=== PATIENT | male | born 1990 | race Caucasian/White ===

== ENCOUNTER 2021-03-21 00:52 | Inpatient (IN) | payer MEDICARE, MEDICAID ==
--- NOTE | 2021-03-21 01:26 | ED ---
Psych HPI - General Stated Complaint: Mental Health Time Seen by Provider: 03/21/21 00:56 Source: patient, police, EMS Mode of arrival: EMS - History of Present Illness Initial Comments: This patient is a 30-year-old man who presents with complaint that there is a demon and that is telling him to hang himself. The demon is also telling him not to talk. He will only communicate through writing. MD Complaint: suicidal ideation, other -: days(s) Associated Psychiatric Symptoms: depression, racing thoughts, auditory hallucinations Quality: constant Improves With: none Worsens With: none - Related Data Home Medications Medication Instructions Recorded Confirmed No Known Home Medications 03/21/21 03/21/21 Allergies Allergy/AdvReac Type Severity Reaction Status Date / Time lamotrigine [From Lamictal] Allergy Anaphylaxis Verified 03/21/21 01:05 Review of Systems ROS Statement: Those systems with pertinent positive or pertinent negative responses have been documented in the HPI. ROS Other: All systems not noted in ROS Statement are negative. Constitutional: Denies: fever, chills Respiratory: Denies: cough, dyspnea Cardiovascular: Denies: chest pain, palpitations Gastrointestinal: Denies: abdominal pain, vomiting Neurological: Denies: headache Psychiatric: Reports: auditory hallucinations, suicidal thoughts. Denies: visual hallucinations, homicidal thoughts Past Medical History Past Medical History: No Reported History History of Any Multi-Drug Resistant Organisms: None Reported Past Surgical History: No Surgical Hx Reported Past Psychological History: Anxiety, Depression Smoking Status: Current every day smoker Past Alcohol Use History: None Reported Past Drug Use History: None Reported General Exam Limitations: language barrier General appearance: alert, in no apparent distress Head exam: Present: atraumatic, normocephalic Eye exam: Present: normal appearance Respiratory exam: Present: normal lung sounds bilaterally. Absent: respiratory distress, wheezes, rales, rhonchi, stridor Cardiovascular Exam: Present: regular rate, normal rhythm, normal heart sounds. Absent: systolic murmur, diastolic murmur, rubs, gallop GI/Abdominal exam: Present: soft. Absent: distended, tenderness, guarding, rebound, rigid, mass Extremities exam: Present: normal inspection, normal capillary refill. Absent: pedal edema, calf tenderness Back exam: Present: normal inspection. Absent: CVA tenderness (R), CVA tenderne ss (L) Neurological exam: Present: alert Psychiatric exam: Present: suicidal ideation. Absent: depressed, agitated, anxious, manic, homicidal ideation Skin exam: Present: warm, dry, intact, normal color. Absent: rash Course Vital Signs 03/21/21 03/21/21 03/21/21 00:55 03:00 05:40 Temperature 98.3 F 97.9 F Pulse Rate 69 82 Pulse Rate [ 86 Right Sitting Pulse Oximetery ] Respiratory 18 16 20 Rate Blood Pressure 138/83 132/78 Blood Pressure 135/79 [Right Arm Sitting] O2 Sat by Pulse 99 98 Oximetry Medical Decision Making - Lab Data Result diagrams: 03/22/21 08:08 Lab Results 03/21/21 03/21/21 03/21/21 Range/Units 02:50 02:50 02:50 Urine Color Yellow Urine Appearance Clear (Clear) Urine pH 6.0 (5.0-8.0) Ur Specific [place] 1.010 (1.001-1.035) Urine Protein Negative (Negative) Urine Glucose (UA) Negative (Negative) Urine Ketones Negative (Negative) Urine Blood Negative (Negative) Urine Nitrite Negative (Negative) Urine Bilirubin Negative (Negative) Urine Urobilinogen <2.0 (<2.0) mg/dL Ur Leukocyte Esterase Negative (Negative) Urine Opiates Screen Not Detected (NotDetected) Ur Oxycodone Screen Not Detected (NotDetected) Urine Methadone Screen Not Detected (NotDetected) Ur Propoxyphene Screen Not Detected (NotDetected) Ur Barbiturates Screen Not Detected (NotDetected) U Tricyclic Antidepress Not Detected (NotDetected) Ur Phencyclidine Scrn Not Detected (NotDetected) Ur Amphetamines Screen Not Detected (NotDetected) U Methamphetamines Scrn Not Detected (NotDetected) U Benzodiazepines Scrn Not Detected (NotDetected) Urine Cocaine Screen Not Detected (NotDetected) U Marijuana (THC) Screen Not Detected (NotDetected) Coronavirus (PCR) Not Detected (Not Detectd) Disposition Clinical Impression: Acute psychosis, Mood disorder Disposition: TRANSFER TO PSYCH HOSP/UNIT Condition: Fair
[2021-03-21 03:21] LABS: Amphetamine Screen,Urine Not Detected (NotDetected); Barbiturate Screen,Urine Not Detected (NotDetected); Benzodiazepines Screen,Urine Not Detected (NotDetected); Cocaine Screen,Urine Not Detected (NotDetected); Methadone Screen, Urine Not Detected (NotDetected); Opiate Screen,Urine Not Detected (NotDetected); Oxycodone Screen, Urine Not Detected (NotDetected); Phencyclidine Screen,Urine Not Detected (NotDetected); Tricyclic Antidepressant,Urine Not Detected (NotDetected); Urn Cannabinoid Scrn Not Detected (NotDetected)
[2021-03-21] MEDS ORDERED: MAG HYDROX/AL HYDROX/SIMETH 30 ML CUP PO PRN (05:16)
[2021-03-21] MEDS ORDERED: ACETAMINOPHEN TAB 325 MG TAB PO PRN (05:16)
[2021-03-21] MEDS ORDERED: MAGNESIUM HYDROXIDE 2,400 MG/10 ML CUP PO PRN (05:16)
[2021-03-21] MEDS ORDERED: HALOPERIDOL LACTATE 5 MG/ML 1 ML VIAL IM PRN (05:16)
[2021-03-21] MEDS ORDERED: LORazepam 2 MG/ML INJ IM PRN (05:21)
[2021-03-21] MEDS ORDERED: LORazepam 1 MG TAB PO PRN (05:21)
[2021-03-21 05:28] LABS: Appearance,Urine Clear (Clear); Bilirubin,Urine Negative (Negative); Blood,Urine Negative (Negative); Color,Urine Yellow; Glucose,Urine (UA) Negative (Negative); Ketones,Urine Negative (Negative); Leukocyte Esterase,Urine Negative (Negative); Nitrite,Urine Negative (Negative); Protein,Urine Negative (Negative); Urobilinogen,Urine <2.0 mg/dL (<2.0)
[2021-03-21] MEDS: NICOTINE 14MG/24HR PATCH TRANSDERM SCH (08:55)
[2021-03-21] MEDS: OLANZapine 7.5 MG TAB PO SCH (13:41)
--- NOTE | 2021-03-21 14:04 | HP ---
HISTORY AND PHYSICAL IDENTIFYING DATA: The patient is a 30-year-old male. There is no information available about his current living situation or circumstances. He came to the ED for evaluation. CHIEF COMPLAINT: The patient was indicating that he was hearing demons telling him to hang himself. HISTORY OF PRESENTING ILLNESS: There are no past records available. 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 When he presented to the ED, he essentially was mute and for the most part has continued to be mute since then. He made an indication that he has autism, although there is no further information than that. According to the ED note, the patient had complaint that "there is a demon and that is telling him to hang himself. The demon is also telling him not to talk. He will only communicate through writing." Beyond that information, the patient has provided no further information. He made some suggestion when I talked to him that he may have had a prior psychiatric hospitalization, though he seemed to gesture that it was a considerable amount of time ago. When I asked him if it was recent, he shook his head no. He did not make an effort to write anything. It is noteworthy that since he has been on the unit, there have been a few times where he has talked to staff in a limited way, though also has tended to be totally mute where he will not say anything at all even with a significant amount of encouragement. He indicated that he has not been on any psychotropic medications currently. When I asked them if he has been on Zyprexa in the past, he shook his head yes when I asked him if he had trouble with it, he shook his head yes. When I asked him what problem he had, he made some gesture with his hands that I was not able to interpret in any way. I asked the patient if he would take Zyprexa as a trial and he shook his head yes. Beyond that, the patient did not respond to any other questions during the interview. He is admitted for further evaluation. SUBSTANCE USE HISTORY: No information available. PAST MEDICAL HISTORY: The patient provided no information. It is noted that vital signs on admission have been in the normal range. MENTAL STATUS EXAM: The patient was in the day room. When I asked him to come down to the office, he got up and walked with me to the office. He tended to look down and moved in a slow manner. He sat and seemed to have his eye gaze forward and down. He did not give any eye contact. He did respond to a few questions where he would shake his head yes or no. There were a few different times he made some gestures with his hands. Though I was not able to interpret the meaning of his gestures. He had a disgruntled look on his face. He had a quiet, withdrawn manner. He appeared significantly distressed. As noted above, he was totally mute throughout the interview process. PHYSICAL EXAMINATION: As per medical consultation. ASSESSMENT: This 30-year-old male is diagnosed with psychosis. There is a possibility that he has an additional diagnosis of autism, though there is no adequate information to verify that. There is no information available in regards to his past psychiatric history or precipitating factors to his current situation. The patient himself did indicate that he has had past psychiatric intervention. DIAGNOSES: 1. Psychosis. 2. Rule out autism. RECOMMENDATIONS: Patient will be admitted for comprehensive medical psychiatric and psychosocial evaluation. We will make efforts to engage the patient in individual and group therapeutic activities. I will start the patient on Zyprexa. He will get a 15 mg dose initially. I would look to continue him on 10 mg 3 times a day. I will evaluate him a little later after he has received his initial dose to see if he shows any early response to the medication. We will continue to monitor and make efforts to engage the patient in any conversation that we can have that hopefully might allow him to adjust to the unit and be a little more open in communicating issues and concerns. We will focus on stabilization and discharge planning. MMPENELOPEL / PHONGN: [id number] /
--- NOTE | 2021-03-22 01:05 | P.PN ---
Progress Note - Text Progress Note Date: 03/22/21 The patient refused to be seen or examined. Will attempt again tomorrow.
[2021-03-22 08:35] LABS: Basophils # (A) 0.1 k/uL (0-0.2); Basophils % (A) 1 %; Eosinophils # (A) 0.2 k/uL (0-0.7); Eosinophils % (A) 4 %; HCT 49.6 % (39.0-53.0); HGB 16.7 gm/dL (13.0-17.5); Lymphocytes % (A) 34 %; MCH 31.5 pg (25.0-35.0); MCHC 33.7 g/dL (31.0-37.0); MCV 93.4 fL (80.0-100.0); Mean Platelet Volume 7.5; Monocytes # (A) 0.5 k/uL (0-1.0); Monocytes % (A) 8 %; Neutrophils % (A) 51 %; Platelet Count 213 k/uL (150-450); RBC 5.31 m/uL (4.30-5.90); RDW 12.6 % (11.5-15.5); WBC 5.9 k/uL (3.8-10.6)
[2021-03-22] MEDS: OLANZapine 7.5 MG TAB PO SCH ×2 (08:42→08:45)
[2021-03-22] MEDS: NICOTINE 14MG/24HR PATCH TRANSDERM SCH ×2 (08:42→08:45)
[2021-03-22 08:54] LABS: ALT 22 U/L (4-49); AST 26 U/L (17-59); African American GFR (CKD) >90 (>60 ml/min/1.73 sqM); Alkaline Phosphatase 67 U/L (38-126); Anion Gap 5 mmol/L; Bilirubin,Unconjugated 0.7 mg/dL (0.0-1.1); Blood Urea Nitrogen 13 mg/dL (9-20); Calcium 9.5 mg/dL (8.4-10.2); Carbon Dioxide 29 mmol/L (22-30); Chloride 108 mmol/L (98-107); Glucose 86 mg/dL (74-99); Non-African American GFR(CKD) >90 (>60 ml/min/1.73 sqM); Potassium 4.3 mmol/L (3.5-5.1); Sodium 142 mmol/L (137-145); Total Bilirubin 0.7 mg/dL (0.2-1.3); Total Protein 6.7 g/dL (6.3-8.2)
[2021-03-22] MEDS: OLANZapine 10 MG TAB PO SCH ×2 (12:42→20:51)
[2021-03-22 16:47] LABS: Hemoglobin A1C 4.8 % (4.0-6.0)
[2021-03-22 18:54] LABS: Chol/HDL Ratio 6.13; Cholesterol 196 mg/dL (0-200)
--- NOTE | 2021-03-22 19:08 | PN ---
PROGRESS NOTE DATE OF SERVICE: 03/22/2021. CHIEF COMPLAINT: The patient was indicating that he was hearing demons telling him to hang himself. INTERVAL HISTORY: The patient continues to be quite withdrawn, most of the day yesterday he was in his room lying in bed. He would not respond to staff when they would come to his room and trying to talk to him. He had said a few things to a few staff members, though most of the time yesterday he was mute, though would nod or give some hand gestures for responses. He slept through the night. Today he has continued to remain in his room. He did accept medication yesterday, though he did not get the medicine this morning, mainly because he just remained in bed. He will get up and move about his room. He does not come out in the halls or attend any groups. I saw him in his room and he was up. I encouraged him to come down to the office, though he declined. He did say he would take his medications and accepted the Zyprexa 10 mg at 12:40 pm to this afternoon. He will be due for nighttime dose as well. He shook his head no when I asked him if he had any problems or concerns regarding his medications. MENTAL STATUS EXAM: Patient was in his room, standing up. I tried to encourage him to come down to the office, though he kept shaking his head no. He gave me a little eye contact. It is noted that he did say a few words out loud, though it was not clear exactly what he was saying. Beyond that he had just would shake his head and gesture. He was a little restless as he stood. When I asked him if he had any trouble with the medication yesterday, he shook his head no. I encouraged him to take the medicine and asked him if he knew where to go to get medicine. He shook his head yes. He did not respond in any other way. He had a somewhat distressed or forelorned look on its face. ASSESSMENT: I will continue the current diagnosis and treatment plan. I will continue the patient on Zyprexa 10 mg twice a day for psychosis. We will continue to make efforts to engage with the patient and encouraged him towards continue with medications and hopefully to make an effort to get out in the milieu. We will focus on stabilization and discharge planning. MMODL / IJN: [id number] /
[2021-03-23] MEDS: OLANZapine 10 MG TAB PO SCH ×2 (09:53→10:06)
[2021-03-23] MEDS: NICOTINE 14MG/24HR PATCH TRANSDERM SCH (09:53)
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
[2021-03-23] MEDS: OLANZapine 5 MG TAB PO SCH (21:14)
[2021-03-24] MEDS: NICOTINE 14MG/24HR PATCH TRANSDERM SCH (08:20)
[2021-03-24] MEDS: OLANZapine 5 MG TAB PO SCH ×2 (08:20→20:13)
--- NOTE | 2021-03-24 10:11 | P.PN ---
Progress Note - Text Progress Note Date: 03/24/21 Interval History: Patient was seen resting in bed and refused to get out of bed and preferred to speak with health science writer in his room. Patient reports he is doing "fine." He is currently not reporting any suicidal or homicidal ideation, intention, and/or plan. He reports no auditory or visual hallucinations. He reports that he drank a lot of water last night and had difficulty sleeping last night because of frequent urination. He has been adherent with his medication and is not reporting any side effect. He remains superficial in his responses and refuses to elaborate beyond "yes and no." He remains isolative to himself in his room most of the day. He denies any issues with his appetite. He refuses to elaborate on the note he wrote regarding his plan to kill himself. Mental Status Exam: General Appearance: Patient appears to be stated age is alert, difficult to direct and uncooperative. Buzz cut hair. Behavior: The patient is calmly lying in bed. No eye contact. Speech: Patient's speech is monotone, nonspontaneous, normal volume and rate. Mood/Affect: Mood is "fine." Affect is constricted and somewhat irritable. Suicidality/Homicidality: Patient denies any suicidal or homicidal ideation, intention, and/or plan. Perceptions: Patient denies any auditory or visual hallucinations. Though content/process: No delusional thought content is endorsed. Memory and concentration: AOX3, grossly intact for the purposes of this session Judgment and insight: Poor Assessment: Psychosis, unspecified Plan: -Patient continues to meet criteria for inpatient psychiatric admission for symptom stabilization and safety. The patient has been petitioned and certified. -Medications: Continue Zyprexa 5 mg by mouth twice a day for psychosis/mood stabilization -When necessary Ativan and Haldol agitation/aggression. -SW on board for discharge planning. Encouraged the patient to participate in milieu.
[2021-03-24] MEDS: haloperidoL 5 MG TAB PO PRN (21:44)
[2021-03-25] MEDS: NICOTINE 14MG/24HR PATCH TRANSDERM SCH (08:26)
[2021-03-25] MEDS: OLANZapine 5 MG TAB PO SCH ×3 (08:26→21:02)
--- NOTE | 2021-03-25 11:48 | P.PN ---
Progress Note - Text Progress Note Date: 03/25/21 Interval History: Patient was agreeable to speak with music writer in his room. The patient was more engaged in interview and got out of bed and remained seated upright. The patient reports that he is feeling like sharing more provided today. He reports that he feels he has misconceived notions about all psychiatrist and was grateful to have a psychiatrist that he is able to talk to and actually was into his problems. He is currently not reporting any suicidal or homicidal ideation, intention, and/or plan. When confronted about his 2 ideas of suicide, the patient stated that his plans while on the unit was to either refrain from drinking any water or messing around with a socket to electrocute himself. The patient is not reporting any issues with sleep or appetite. He has been adherent to his medications is not reporting any significant side effects. He is not reporting any auditory or visual hallucinations. He is denying any paranoia or delusions. Mental Status Exam: General Appearance: Patient appears to be stated age, with fair hygiene and grooming, and is alert and cooperative. Buzz cut hair. Behavior: The patient is calmly seated upright in his bed. Psychomotor activity is normal. Eye contact is appropriate. Speech: Patient's speech is spontaneous, with normal rate, tone, and volume. Mood/Affect: Mood is "good." Affect is euthymic with appropriate range. Suicidality/Homicidality: Patient denies any suicidal or homicidal ideation, intention, and/or plan. Perceptions: Patient denies any auditory or visual hallucinations. Though content/process: No delusional thought content is endorsed. Memory and concentration: AOX3, grossly intact for the purposes of this session Judgment and insight: Mildly improving Vital Signs Temp 97.5 F L 03/25/21 06:12 Pulse 76 03/25/21 06:12 Resp 20 03/21/21 05:40 BP 150/79 03/25/21 06:12 Pulse Ox 98 03/21/21 03:00 Assessment: Psychosis, unspecified Bipolar disorder, unspecified Plan: -Patient continues to meet criteria for inpatient psychiatric admission for symptom stabilization and safety. The patient has signed voluntarily for admission. -Medications: Increase Zyprexa to 5 mg 3 times a day for psychosis/mood stabilization -Titrate medications if necessary over the weekend. Anticipate discharge on Sunday or Sunday. -When necessary Ativan and Haldol agitation/aggression. -SW on board for discharge planning. Encouraged the patient to participate in milieu.
[2021-03-25] MEDS: haloperidoL 5 MG TAB PO PRN (21:03)
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
[2021-03-26] MEDS: NICOTINE 14MG/24HR PATCH TRANSDERM SCH (07:53)
[2021-03-26] MEDS: OLANZapine 5 MG TAB PO SCH ×3 (07:54→20:41)
[2021-03-26] MEDS: LORazepam 1 MG TAB PO PRN (22:04)
[2021-03-27] MEDS: NICOTINE 14MG/24HR PATCH TRANSDERM SCH (07:55)
[2021-03-27] MEDS: OLANZapine 5 MG TAB PO SCH ×3 (07:55→20:33)
--- NOTE | 2021-03-27 10:57 | P.PN ---
Progress Note - Text Progress Note Date: 03/26/21 Clinical Problems: Unspecified psychotic disorder, rule out bipolar disorder current episode depressed with psychotic features, rule out schizoaffective disorder, rule out schizophrenia, poor compliance with mental health treatment Interim history: I reviewed the medical record and attempted to interview the patient. He is 30-year-old single male admitted to the psychiatric unit voluntarily. He presented with what appeared to be elective mutism, suicidal ideation and paranoid delusional beliefs. He told the physician in the ED that "there is a demon that is telling him to hang himself." He has been oppositional throughout this brief hospitalization however he is speaking with staff. He would not get out of bed for the interview. His only concern was asking for assistance in lowering the temperature of his room heater. He denied problems or concerns and did not voice suicidal thoughts, intent or plan. He is attending occasional therapeutic groups and activities. He slept 5 hours last night. He's been compliant with Zyprexa 5 mg 3 times a day; he denied side effects. Mental status exam: He presented as minimally cooperative young male who is laying in bed. He made eye contact and appeared to attend to the interview. He showed no abnormality of psychomotor activity. He is mildly sedated. Speech was not spontaneous but was clear, coherent and organized. His affect was blunted. He did not express suicidal thoughts or ideations. He did not expressed depressive cognitions, obsessions, phobias, ideas reference or paranoid ideation. His thinking was concrete. Associations were coherent and goal directed. He denied hallucinations did not appear to be responding to internal stimuli. Assessment: He remains oppositional about the mutism has resolved and he has not recently express delusional thoughts or suicidal ideation. Plan: Continue with inpatient treatment. Continue with safety precautions. Continue Zyprexa 5 mg 3 times a day, Haldol 5 mg by mouth/IM every 6 hours when necessary for agitation acute psychosis as well as Ativan 1 mg by mouth or IM every 6 when necessary for anxiety or agitation. Encourage participation in therapeutic groups and activities. Evaluate clinical status response treatment daily basis.
--- NOTE | 2021-03-27 15:02 | P.PN ---
Progress Note - Text Progress Note Date: 03/27/21 Clinical Problems: Unspecified psychotic disorder, rule out bipolar disorder current episode depressed with psychotic features, rule out schizoaffective disorder, rule out schizophrenia, poor compliance with mental health treatment Interim history: I reviewed the medical record and attempted to interview the patient. He was pleasant on approach and spoke voluminously about his concerns. His speech was rapid and pressured. He assured me that he is not a danger to self or others. He referred to himself as a "high functioning autistic" who is learning how to "read other people." He talked about negative experiences with others including his parents and difficulty he's had in his social relationships. He plans to return to the [facility] after discharge. He denied side effects to his current medications. He is attending occasional therapeutic groups and activities. He slept 6 hours last night. He's been compliant with Zyprexa 5 mg 3 times a day; he denied side effects. Mental status exam: He presented as somewhat disheveled appearing young Cauc[place] criselda male who is pleasant on approach. He made eye contact and appeared to attend to the interview. He showed no abnormality of psychomotor activity. He was alert and fully oriented. Speech was spontaneous and pressured. His affect was blunted. He deniedsuicidal thoughts or ideations. He did not expressed depressive cognitions, obsessions, phobias, ideas reference or paranoid ideation. His thinking was concrete. Associations were coherent and goal directed. He denied hallucinations did not appear to be responding to internal stimuli. Assessment: He He is not oppositional but is showing some signs of hypomania. There is no evidence of psychosis at this time. Plan: Continue with inpatient treatment. Continue with safety precautions. Continue Zyprexa 5 mg 3 times a day and Haldol and/or Ativan when necessary for agitation, aggression or acute psychosis. Encourage participation in therapeutic groups and activities. Evaluate clinical status response treatment daily basis.
[2021-03-28 07:13] VITALS: BP 142/75; PULSE 64; RESP 18; TEMP 97.1
[2021-03-28] MEDS: OLANZapine 5 MG TAB PO SCH ×3 (08:42→20:10)
[2021-03-28] MEDS: NICOTINE 14MG/24HR PATCH TRANSDERM SCH (08:42)
--- NOTE | 2021-03-28 11:38 | P.PN ---
Progress Note - Text Progress Note Date: 03/28/21 Interval History: Patient was agreeable to speak with public relations writer in the office. Patient reports that he is doing well. He is currently not endorsing any suicidal or homicidal ideation, intention, and/or plan. Reports that he plans to move on to "the next step of treatment, which is outpatient." He is not endorsing any auditory or visual hallucinations. He denies any paranoia or other delusions. He expresses that he would like to find employment and working towards becoming a respiratory therapist. He remains future oriented. Denies any issues with sleep or appetite. He reports that the Zyprexa causes him to feel somewhat sedated but that these effects wear off shortly after. The patient has been participating in individual and milieu therapies. Mental Status Exam: General Appearance: Patient appears to be stated age, with fair hygiene and grooming, and is alert and cooperative. Buzz cut hair. Behavior: The patient is calmly seated without any agitation the office. Psychomotor activity is normal. Eye contact is appropriate. Speech: Patient's speech is spontaneous, with normal rate, tone, and volume. Mood/Affect: Mood is "good." Affect is euthymic with appropriate range. Suicidality/Homicidality: Patient denies any suicidal or homicidal ideation, intention, and/or plan. Perceptions: Patient denies any auditory or visual hallucinations. Though content/process: No delusional thought content is endorsed. Memory and concentration: AOX3, grossly intact for the purposes of this session Judgment and insight: Mildly improving Vital Signs Temp 97.1 F L 03/28/21 07:12 Pulse 64 03/28/21 07:12 Resp 18 03/28/21 07:12 BP 142/75 03/28/21 07:12 Pulse Ox 98 03/21/21 03:00 Assessment: Psychosis, unspecified Bipolar disorder, unspecified Plan: -Patient continues to meet criteria for inpatient psychiatric admission for symptom stabilization and safety. The patient has signed voluntarily for admission. -Medications: Continue Zyprexa to 5 mg 3 times a day for psychosis/mood stabilization -Anticipate discharge tomorrow. -When necessary Ativan and Haldol agitation/aggression. -SW on board for discharge planning. Encouraged the patient to participate in milieu.
[2021-03-28] MEDS: LORazepam 1 MG TAB PO PRN (20:10)
[2021-03-29] MEDS: OLANZapine 5 MG TAB PO SCH (07:48)
[2021-03-29] MEDS: NICOTINE 14MG/24HR PATCH TRANSDERM SCH (07:48)
--- NOTE | 2021-03-29 10:03 | P.DS ---
Providers Date of admission: 03/21/21 05:15 Expected date of discharge: 03/29/21 Attending physician: Everardo Stern MD Consults: 03/21/21 05:16 Consult Physician Routine Consulting Provider: Elpidio Physician Consult Reason/Comments: H & P Do you want consulting provider notified?: Already Contacted Primary care physician: Stated None - Discharge Diagnosis(es) (1) Major depressive disorder, recurrent, severe with psychotic features Current Visit: Yes Status: Acute Priority: High Hospital Course: Admission HPI: Initial psychiatric evaluation was completed by Dr. Rivera on 03/21/2021 who wrote: The patient is a 30-year-old male. The patient was indicating that he was hearing demons telling him to hang himself. There are no past records available. It is noteworthy that the patient hasn't [place] class c driver's license. When he presented to the ED, he was essentially mute and for the most part has continued to be mute since then. He made an indication that he has autism, although there is no further information on that. According to the ED note, the patient had complained that "there is a demon and that is telling him to hang himself. The demon is also telling him not to talk. He'll only communicate through writing." Beyond that information, the patient has provided no further information. He made some suggestion that he may have had a prior psychiatric hospitalization, though he seemed to gesture that it was a considerable amount of time ago. When asked him if it was recent, he shook his head no. He did not make an effort to write anything. It is noteworthy that since he has been on the unit, there have been a few times when he talked to staff in a limited way, though also has tended to be totally mute or he will not say anything at all even with a significant amount of encouragement. He indicated that he has not been on any psychotropic medications currently. I asked him if he has been on Zyprexa in the past, he shook his head yes when asked him if he had trouble with it, he shook his head yes. When asked him what problem he had, he made some gestures and that I was not able to interpret in any way. Asked the patient if he would take Zyprexa as a trial and he shook his head yes. Beyond that, the patient did not respond to any questions during interview. He is admitted for further evaluation. Hospital course: Upon admission to the unit, the patient was initially presenting as selectively mute and uncooperative with the psychiatric interviews. Dr Rivera started the patient on zyprexa 10 mg twice daily for psychosis. When seen by this provider, the patient continued to be mostly uncooperative and at times confrontational. He was noted to write a letter stating that he is suicidal and stated he has found ways to kill himself on the unit. Despite this, the patient was adherent with his medications. Initially, the patient remained as little to himself in his room and refused to participate in milieu activities. As the patient continued to be adherent with the medication, he became more cooperative with the psychiatric interview and increased his range of affect. Gradually, the patient became more and more cooperative and began participating in milieu activities. He displayed significant improvement in regards to his mood, psychotic symptoms, and future orientation. The patient no longer endorsed any auditory hallucinations or suicidal ideation. On the day of discharge, the patient not reporting any suicidal or homicidal ideation, intention, and/or plan. He is denying any access to firearms or other weapons at home. He expresses a strong desire to live for himself and to continue his treatment for traumas that he has expense in his life in the outpatient setting. He is looking forward to going back to the [facility] that he has been staying in. He has been in adherent with his medications is not endorsing any significant side effects. He denies any auditory or visual hallucinations. Denies any paranoia or delusions. The patient expresses a strong desire to live for himself and for his future. The patient was counseled at length on his medications including the risks, benefits, and side effects. He was encouraged to be adherent with the medications and follow-up with his outpatient psychiatric appointments as well as his appointments for primary care. The patient was counseled at length and avoiding all substances including alcohol a nd marijuana. Mental status exam: General Appearance: [Patient appears to be stated age is alert, pleasant, and cooperative. Patient is in no acute distress and has fair hygiene and grooming. Obese body habitus. Behavior: Patient is calmly seated without any agitated behavior. Eye contact is appropriate. Speech: Patient's speech is fluent and nonpressured. Spontaneous, with normal rate, tone, and volume. Mood/Affect: Patient reports their mood is "much better", affect is congruent and euthymic to bright. Suicidality/Homicidality: Patient denies having any suicidal or homicidal ideation intent or plan. Perceptions: Patient denies any auditory or visual hallucinations. Though content/process: There is no evidence of any delusional thought content and thought process is linear and goal-directed. The patient is future oriented. Memory and concentration: AOX3, grossly intact for the purposes of this session. Can spell "WORLD" backwards correctly. Judgment and insight: Improved Vital Signs Temp 97.1 F L 03/28/21 07:12 Pulse 64 03/28/21 07:12 Resp 18 03/28/21 07:12 BP 142/75 03/28/21 07:12 Pulse Ox 98 03/21/21 03:00 Impression: Major depressive disorder, recurrent, severe with psychotic features Plan: -Continue with discharge today as patient has improved and stabilized psychiatrically and is not currently an imminent threat to himself and/or others. Patient will remain at chronically elevated risk for harm to self and/or others due to his prior attempts at suicide, and gender. -Continue medications: Zyprexa 5 mg by mouth 3 times a day for psychosis Nicotine Habitrol patches for tobacco cessatio -Patient was counseled on the need for medication compliance and appropriate follow-up at mental health and also primary care for medical issues. Patient verbalized understanding and agreed. -Social work to arrange for and conduct family meeting to ensure safety upon discharge and answer any questions/concerns. Social work also to arrange for patients follow up appointments with the [facility] for psychiatric care along with follow up with primary care provider. -Patient counseled on abstaining from recreational drugs and marijuana and alcohol. Was informed/educated on the adverse effects on their physical and mental health. Patient verbally agreed and understood. -Patient was instructed to return to the hospital or seek immediate medical care if their psychiatric or medical symptoms do worsen or reoccur. -Psychoeducation and supportive therapy provided to patient. Risks and benefits of pharmacological treatment versus the risks and benefits of nontreatment weight and discussed. Informed consent discussion held. Common side effects of psychotropics discussed such as, but not limited to headache, GI disturbance, sexual dysfunction, movement disorders, sedation, and orthostatic hypotension. Life threatening and blackbox warnings of prescribed medications also discussed. Potential risks of operating a vehicle or heavy machinery discussed with patient at length. Advised on importance of compliance and a reliable and responsible manner. Patient advised to review FDA consumer labeling of all medications prior to taking. Patient verbalized understanding of potential risks, and agrees with current treatment plan. Patient advised to medically contact physician/emergency personnel if any acute changes in condition occur. Laboratory Results WBC 5.9 k/uL (3.8-10.6) 03/22/21 08:08 RBC 5.31 m/uL (4.30-5.90) 03/22/21 08:08 Hgb 16.7 gm/dL (13.0-17.5) 03/22/21 08:08 Hct 49.6 % (39.0-53.0) 03/22/21 08:08 MCV 93.4 fL (80.0-100.0) 03/22/21 08:08 MCH 31.5 pg (25.0-35.0) 03/22/21 08:08 MCHC 33.7 g/dL (31.0-37.0) 03/22/21 08:08 RDW 12.6 % (11.5-15.5) 03/22/21 08:08 Plt Count 213 k/uL (150-450) 03/22/21 08:08 MPV 7.5 03/22/21 08:08 Neutrophils % 51 % 03/22/21 08:08 Lymphocytes % 34 % 03/22/21 08:08 Monocytes % 8 % 03/22/21 08:08 Eosinophils % 4 % 03/22/21 08:08 Basophils % 1 % 03/22/21 08:08 Neutrophils # 3.0 k/uL (1.3-7.7) 03/22/21 08:08 Lymphocytes # 2.0 k/uL (1.0-4.8) 03/22/21 08:08 Monocytes # 0.5 k/uL (0-1.0) 03/22/21 08:08 Eosinophils # 0.2 k/uL (0-0.7) 03/22/21 08:08 Basophils # 0.1 k/uL (0-0.2) 03/22/21 08:08 Sodium 142 mmol/L (137-145) 03/22/21 08:08 Potassium 4.3 mmol/L (3.5-5.1) 03/22/21 08:08 Chloride 108 mmol/L (98-107) H 03/22/21 08:08 Carbon Dioxide 29 mmol/L (22-30) 03/22/21 08:08 Anion Gap 5 mmol/L 03/22/21 08:08 BUN 13 mg/dL (9-20) 03/22/21 08:08 Creatinine 0.84 mg/dL (0.66-1.25) 03/22/21 08:08 Est GFR (CKD-EPI)AfAm >90 (>60 ml/min/1.73 sqM) 03/22/21 08:08 Est GFR (CKD-EPI)NonAf >90 (>60 ml/min/1.73 sqM) 03/22/21 08:08 Glucose 86 mg/dL (74-99) 03/22/21 08:[address] Glu mg/dL 91 03/22/21 08:08 Hemoglobin A1c 4.8 % (4.0-6.0) 03/22/21 08:08 Calcium 9.5 mg/dL (8.4-10.2) 03/22/21 08:08 Total Bilirubin 0.7 mg/dL (0.2-1.3) 03/22/21 08:08 Conjugated Bilirubin 0.0 mg/dL (0.0-0.3) 03/22/21 08:08 Unconjugated Bilirubin 0.7 mg/dL (0.0-1.1) 03/22/21 08:08 Delta Bilirubin 0.0 mg/dL (0.0-0.2) 03/22/21 08:08 AST 26 U/L (17-59) 03/22/21 08:08 ALT 22 U/L (4-49) 03/22/21 08:08 Alkaline Phosphatase 67 U/L (38-126) 03/22/21 08:08 Total Protein 6.7 g/dL (6.3-8.2) 03/22/21 08:08 Albumin 4.0 g/dL (3.5-5.0) 03/22/21 08:08 Triglycerides 105.0 mg/dL (0.0-149.0) 03/22/21 08:08 Cholesterol 196 mg/dL (0-200) 03/22/21 08:08 LDL Cholesterol, Calc 143.0 mg/dL (0.0-131.0) H 03/22/21 08:08 VLDL Cholesterol, Calc 21.00 mg/dL (5.00-40.00) 03/22/21 08:08 HDL Cholesterol 32.0 mg/dL (40.0-60.0) L 03/22/21 08:08 Cholesterol/HDL Ratio 6.13 03/22/21 08:08 TSH 1.070 mIU/L (0.465-4.680) 03/22/21 08:08 Urine Color Yellow 03/21/21 02:50 Urine Appearance Clear (Clear) 03/21/21 02:50 Urine pH 6.0 (5.0-8.0) 03/21/21 02:50 Ur Specific [place] 1.010 (1.001-1.035) 03/21/21 02:50 Urine Protein Negative (Negative) 03/21/21 02:50 Urine Glucose (UA) Negative (Negative) 03/21/21 02:50 Urine Ketones Negative (Negative) 03/21/21 02:50 Urine Blood Negative (Negative) 03/21/21 02:50 Urine Nitrite Negative (Negative) 03/21/21 02:50 Urine Bilirubin Negative (Negative) 03/21/21 02:50 Urine Urobilinogen <2.0 mg/dL (<2.0) 03/21/21 02:50 Ur Leukocyte Esterase Negative (Negative) 03/21/21 02:50 Urine Opiates Screen Not Detected (NotDetected) 03/21/21 02:50 Ur Oxycodone Screen Not Detected (NotDetected) 03/21/21 02:50 Urine Methadone Screen Not Detected (NotDetected) 03/21/21 02:50 Ur Propoxyphene Screen Not Detected (NotDetected) 03/21/21 02:50 Ur Barbiturates Screen Not Detected (NotDetected) 03/21/21 02:50 U Tricyclic Antidepress Not Detected (NotDetected) 03/21/21 02:50 Ur Phencyclidine Scrn Not Detected (NotDetected) 03/21/21 02:50 Ur Amphetamines Screen Not Detected (NotDetected) 03/21/21 02:50 U Methamphetamines Scrn Not Detected (NotDetected) 03/21/21 02:50 U Benzodiazepines Scrn Not Detected (NotDetected) 03/21/21 02:50 Urine Cocaine Screen Not Detected (NotDetected) 03/21/21 02:50 U Marijuana (THC) Screen Not Detected (NotDetected) 03/21/21 02:50 Coronavirus (PCR) Not Detected (Not Detectd) 03/21/21 02:50 Allergies Allergy/AdvReac Type Severity Reaction Status Date / Time lamotrigine [From Lamictal] Allergy Anaphylaxis Verified 03/26/21 10:37 Patient Condition at Discharge: Stable Plan - Discharge Summary Discharge Rx Participant: No New Discharge Prescriptions: New Nicotine 14Mg/24Hr Patch [Habitrol] 1 patch TRANSDERM DAILY 30 Days patch OLANZapine [ZyPREXA] 5 mg PO TID 30 Days tab Discharge Medication List Nicotine 14Mg/24Hr Patch [Habitrol] 1 patch TRANSDERM DAILY 30 Days patch 03/29/21 [Rx] OLANZapine [ZyPREXA] 5 mg PO TID 30 Days tab 03/29/21 [Rx] Follow up Appointment(s)/Referral(s): [facility] [NON-STAFF] - 1 Week Patient Instructions/Handouts: Psychotic Disorder (DC) Activity/Diet/Wound Care/Special Instructions: Activity and diet as tolerated. Avoid the use of street drugs and alcohol. Take all medications as prescribed. When you are in need of refills on your medicat ions please contact your medical provider and/or outpatient psychiatrist to have this done. Please go to scheduled outpatient appointment for aftercare treatment. If symptoms return or become worse, call the crisis line at and/or go to the nearest emergency room for evaluation. Discharge Disposition: HOME SELF-CARE
== END 2021-03-29 07:00 | disposition home or self-care (01) | DRG 885 ==
LOC: EC 00:52 → 3MHU 05:15
PROVIDERS: ADMIT Psychiatry & Neurology Psychiatry; ATTEND Psychiatry & Neurology Psychiatry
DX: F33.3 Major depressive disorder, recurrent, severe with psychotic symptoms (principal); E66.9 Obesity, unspecified; F17.200 Nicotine dependence, unspecified, uncomplicated; F31.9 Bipolar disorder, unspecified; F94.0 Selective mutism; Z20.822 Contact with and (suspected) exposure to COVID-19
CPT/HCPCS: 80053; 80061; 80306; 81003; 82075; 82248; 83036; 84443; 85025; 87635; 99285

== ENCOUNTER 2021-06-13 05:42 | Inpatient (IN) | payer MEDICARE, MEDICAID ==
[2021-06-13 08:12] VITALS: PULSE 78; RESP 18
[2021-06-13] MEDS ORDERED: MAG HYDROX/AL HYDROX/SIMETH 30 ML CUP PO PRN (09:26)
[2021-06-13] MEDS ORDERED: LORazepam 2 MG/ML INJ IM PRN (09:28)
[2021-06-13] MEDS ORDERED: haloperidoL 5 MG TAB PO PRN (09:29)
[2021-06-13] MEDS ORDERED: HALOPERIDOL LACTATE 5 MG/ML 1 ML VIAL IM PRN (09:29)
[2021-06-13] MEDS ORDERED: hydrOXYzine pamoate 25 MG CAP PO PRN (09:31)
[2021-06-13] MEDS ORDERED: ARIPiprazole 15 MG TAB PO SCH (12:00)
--- NOTE | 2021-06-13 12:49 | P.HP ---
Psychiatric H&P - . H&P Date: 06/13/21 History & Physical: Allergies Allergy/AdvReac Type Severity Reaction Status Date / Time lamotrigine [From Lamictal] Allergy Anaphylaxis Verified 03/26/21 10:37 Vital Signs Temp 97.5 F L 06/13/21 08:00 Pulse 78 06/13/21 08:00 Resp 18 06/13/21 08:00 BP 113/68 06/13/21 08:00 Pulse Ox 98 06/13/21 08:00 Intake & Output 06/12/21 06/13/21 06/13/21 18:59 06:59 18:59 Weight 106.5 kg 06/13/21 12:48 IDENTIFYING DATA: Patient is a single, unemployed, 30-year-old male who was transferred from [facility] to [facility] on 06/13/2021 via EMS for depression and suicidal ideation with plan. HPI: Patient presented to the hospital on 06/13/2021, brought in by EMS from [facility] after endorsing significant depression and suicidal ideation with a plan. As per petition written by Salvatore Fitzgerald who is a mental health worker at [facility], Bo[place] stated that he intends to commit suicide. Dehydration. He reported that he would do this if he was to be released and that he found a secluded witted local area where he would do this. The patient was also certified by the emergency physician at [facility]. Upon evaluation by EPS, the patient reported that "he had a plan to end his life at the [facility], right under their noses." The patient stated that he attempted to [facility]rate himself. Currently, the patient is not participating in the psychiatric evaluation. He refuses to get out of bed and answer any questions. The patient did endorse that he has suicidal thoughts about dehydrating himself to this provider but denied any other plans at this time. The patient reportedly has no job, no girlfriend, no family, no support. The patient was last admitted to the psychiatric unit from 03/21/2021- 03/29/2021. The patient was discharged on a regimen of Zyprexa 5 mg 3 times a day for psychosis. He was discharged with follow-up appointments with the [facility]. The patient has since had medication changes and his home medication regimen includes Abilify 15 mg daily and Depakote 1500 mg at bedtime. It is uncertain at this time whether the patient has been adherent with his medications or not. The patient had a second medical certificate filled out due to concerns for immediate risk of harm to self and an inability to participate in treatment. PAST PSYCHIATRIC HISTORY: The patient was admitted onto the psychiatric unit from 03/21/2021- 03/29/2021 with a diagnosis of major depressive disorder with psychotic features. He was scheduled to follow up with the [facility]. His current medication regimen includes Abilify and Depakote. He is uncertain whether the patient has been attending the medications at this time. He has reported past suicide attempts. PMH: Past Medical History: No Reported History History of Any Multi-Drug Resistant Organisms: None Reported Past Surgical History: No Surgical Hx Reported Past Psychological History: Anxiety, Depression Smoking Status: Current every day smoker Past Alcohol Use History: None Reported Past Drug Use History: None Reported ALLERGIES: Lamotrigine CHEMICAL DEPENDENCY HISTORY: Unable to determine at this time. FAMILY PSYCHIATRIC/SUBSTANCE USE HISTORY: Unable to determine at this time. SOCIAL HISTORY: Patient is a single, unemployed, 30-year-old male. He is currently homeless. He is not divulging any other information at this time. MENTAL STATUS EXAM: General Appearance: Patient appears to be stated age is alert, but on directable and refuses to cooperate. Patient appears to have poor hygiene and grooming. Behavior: Patient is lying in bed and refuses to get out of bed or make any eye contact with this provider. Speech: Patient's speech is nonspontaneous, minimal, monotone, low in volume. Mood/Affect: Patient reports their mood is depressed, affect is congruent and withdrawn. Suicidality/Homicidality: Patient endorses suicidal ideation but no homicidal ideation. Perceptions: Unable to obtain information Though content/process: There is no evidence of any delusional thought content and thought process is linear and goal-directed. Memory and concentration: AOX3, grossly intact for the purposes of this session. Can spell "WORLD" backwards Judgment and insight: Poor STRENGTHS/WEAKNESSES: Strength is that the patient is in relatively good physical health. Weakness is that the patient is homeless and has poor social support. He also has prior attempts at suicide. INTELLECT: average IMPRESSIONS: Major depressive disorder, recurrent, severe Rule out bipolar disorder PLAN: -Patient is admitted under involuntary status to [facility]HU for stabilization of psychiatric symptoms and safety. A second certification was completed and along with petition will be filed for court. -Medications : Will start patient on Abilify 15 mg by mouth daily for mood stabilization Depakote 1500 mg by mouth at bedtime for mood stabilization -Ativan and Haldol PRN for agitation/aggression -Patient was informed of the risks, benefits and side effects of the medication but refused to acknowledge information provided to him. -Internal medicine to perform history and physical examination. -NRT - nicotine patch -SW on board for discharge planning. Encourage patient to participate in groups to work on coping skills. 06/13/21 12:48
[2021-06-13] MEDS: NICOTINE 14MG/24HR PATCH TRANSDERM SCH (12:50)
[2021-06-13] MEDS ORDERED: DIVALPROEX 500 MG TABLET.DR PO SCH (21:00)
[2021-06-13] MEDS: LORazepam 1 MG TAB PO PRN (23:59)
[2021-06-14] MEDS: NICOTINE 14MG/24HR PATCH TRANSDERM SCH (12:01)
--- NOTE | 2021-06-14 12:22 | P.PN ---
Progress Note - Text Progress Note Date: 06/14/21 Interval History: Patient was seen resting in bed and was difficult to direct and refuse to get out of bed. He preferred to speak with the ad writer in his room. The patient was minimal in conversation. He answers in short "yes or no" fashion. He currently reports suicidal ideation but is unable to verbalize any intention or plan. He denies any homicidal ideation. He reports no auditory or visual hallucinations. He reports no issues regarding sleep. He states that he has been able to get up to eat. He has been in adherent with his medications. He denies any side effects at this time. The patient was informed that if he refuses to participate in evaluation and treatment, we cannot further justify continued inpatient treatment. The patient refused to respond or get out of bed. Mental Status Exam: General Appearance: Patient appears to be stated age is alert, but not directable and refuses to cooperate. Patient appears to have poor hygiene and grooming. Behavior: Patient is lying in bed and refuses to get out of bed or make any eye contact with this provider. Speech: Patient's speech is nonspontaneous, minimal, monotone, low in volume. Patient responds in 1 word replies. Mood/Affect: Patient reports their mood is depressed, somnolent affect. Suicidality/Homicidality: Patient endorses suicidal ideation but no homicidal ideation. Perceptions: Unable to obtain information Though content/process: There is no evidence of any delusional thought content and thought process is linear and goal-directed. Memory and concentration: Unable to assess Judgment and insight: Poor Vital Signs Temp 97.5 F L 06/13/21 08:00 Pulse 78 06/13/21 08:00 Resp 18 06/13/21 08:00 BP 113/68 06/13/21 08:00 Pulse Ox 98 06/13/21 08:00 Intake & Output 06/13/21 06/14/21 06/14/21 18:59 06:59 18:59 Weight 106.5 kg Assessment Major depressive disorder, recurrent, severe Rule out bipolar disorder Plan: -Patient continues to meet criteria for inpatient psychiatric admission for symptom stabilization and safety. -Patient deferred mental health court. -The patient's list of medications from [facility]. -Medications: We will decrease Depakote to 1000 mg at bedtime as the patient was only taking 500 mg at [facility] We will increase the patient's Abilify to 20 mg by mouth daily for mood stabilization/augmentation The patient last received Abilify maintena 400 mg IM on 05/27/21. His next dose is due 06/24/21. -When necessary Ativan and Haldol for agitation/aggression. -NRT - nicotine patch -SW on board for discharge planning. Encouraged the patient to participate in milieu.
[2021-06-14] MEDS: DIVALPROEX 500 MG TABLET.DR PO SCH (22:44)
[2021-06-14] MEDS ORDERED: LORazepam 1 MG TAB ONE (23:32)
[2021-06-14] MEDS ORDERED: NICOTINE 14MG/24HR PATCH TRANSDERM ONE (23:32)
[2021-06-15] MEDS: NICOTINE 14MG/24HR PATCH TRANSDERM SCH (09:34)
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
--- NOTE | 2021-06-15 15:30 | P.CONS ---
History of Present Illness - Reason for Consult Consult date: 06/15/21 Medical management Requesting physician: Everardo Stern - Chief Complaint Tired - History of Present Illness Consultation: Had come to see the patient on June 13 and June 14. On both occasions patient had refused to be seen by me. Nursing was informed This is a 30-year-old patient, follows with Dr. Fritz. He was initially transferred from [facility] to our hospital on June 13 why EMS for depression and suicidal ideation. Patient stated that he did find a secluded place in the hospital to have a tremendous life. It seems on the floor also patient not participating in any psychiatric input. Patient denies any chest pain or shortness of breath. No fever no chills. He states he is eating fine. No change in bowel habits. During my interview patient's case laying in the bed. Has his face in the pillow. Getting very short answers. Very difficult to obtain any more detailed history. Patient not employed. Apparently his also homeless. Review of systems: GEN.: None EYES: None HEENT: None NECK: None RESPIRATORY: None CARDIOVASCULAR: None GASTROINTESTINAL: None GENITOURINARY: None MUSCULOSKELETAL: None LYMPHATICS: None HEMATOLOGICAL: None PSYCHIATRY: Depression] NEUROLOGICAL: None Past medical history to include: Depression Social history: Unemployed. Apparently homeless. Does smoke a pack a day. Denies alcohol or use of recreational drugs Family history: Reviewed, noncontributory to presentation Physical examination: VITAL SIGNS: 97.5, 78, 18, 113/68, 98% room air GENERAL: BMI 30.1, laying in bed.. EYES: Pupils equal. Conjunctiva normal. HEENT: External appearance of nose and ears normal, oral cavity grossly normal. NECK: JVD not raised; masses not palpable. HEART: First and second heart sounds are normal; no edema. LUNGS: Respiratory rate normal; clear to auscultation. ABDOMEN: Soft, nontender, liver spleen not palpable, no masses palpable. PSYCH: [Unable to assess. Does appear to be anxious L. NEUROLOGICAL: Cranial nerves grossly intact; no facial asymmetry, power and sensation grossly intact. LYMPHATICS: No lymph nodes palpable in the axilla and neck Assessment and plan: -Major depressive disorder, recurrent, severe -Chronic nicotine dependence cigarette smoker Nicotine patch -Some element of antisocial behavior. Patient is currently on Abilify. Ativan when necessary. Nicotine patch. Patient to follow-up with his PCP upon discharge Thank you Dr. Stern Past Medical History Past Medical History: No Reported History History of Any Multi-Drug Resistant Organisms: None Reported Past Surgical History: No Surgical Hx Reported Past Psychological History: Anxiety, Depression Smoking Status: Never smoker Past Alcohol Use History: None Reported Past Drug Use History: None Reported - Past Family History Family Family Medical History: No Reported History Medications and Allergies Home Medications Medication Instructions Recorded Confirmed Type Nicotine 14Mg/24Hr Patch [Habitrol] 1 patch TRANSDERM DAILY 30 Days 03/29/21 Rx patch OLANZapine [ZyPREXA] 5 mg PO TID 30 Days tab 03/29/21 Rx Allergies Allergy/AdvReac Type Severity Reaction Status Date / Time lamotrigine [From Lamictal] Allergy Anaphylaxis Verified 03/26/21 10:37
[2021-06-15] MEDS: DIVALPROEX 500 MG TABLET.DR PO SCH (20:05)
[2021-06-15] MEDS: LORazepam 1 MG TAB PO PRN (22:59)
[2021-06-16] MEDS: NICOTINE 14MG/24HR PATCH TRANSDERM SCH (08:25)
--- NOTE | 2021-06-16 11:52 | P.PN ---
Progress Note - Text Progress Note Date: 06/16/21 Interval History: Patient was seen resting in bed. The patient was agreeable to get out of bed to speak this provider. Currently, the patient is reported feeling significantly better. He is currently not reporting any suicidal or homicidal ideation, intention, and/or plan. He is not endorsing any auditory or visual hallucinations. He is denying any paranoia or other delusions. The patient displays future orientation, stating that he would like to eventually move to a different city or county, in particular he would like to go to [place]. The patient is currently not reporting any significant side effects of his medications and has been adherent. as per discussion with the patient, he has been previously diagnosed with bipolar disorder as well as autism spectrum disorder. We discussed at length these diagnoses with to expect from medications as well as nonpharmacological treatments, as such as behavioral modification and social rhythmic training. Mental Status Exam: General Appearance: Patient appears to be stated age is alert, directable and cooperative. Patient appears to have fair hygiene and grooming. Behavior: Patient was initially lying in bed but was able to get out of bed to speak with this provider. Normal psychomotor activity. Speech: Patient's speech is spontaneous, with normal rate, fluent, and with normal volume. Mood/Affect: Patient reports their mood is, feeling better affect is euthymic. Suicidality/Homicidality: Patient is currently denying any suicidal or homicidal ideation. Perceptions: Denies visual or auditory hallucinations. Though content/process: There is no evidence of any delusional thought content and thought process is linear and goal-directed. Memory and concentration: Grossly intact for purposes of this session. Judgment and insight: Improving Vital Signs Temp 97.5 F L 06/13/21 08:00 Pulse 78 06/13/21 08:00 Resp 18 06/13/21 08:00 BP 113/68 06/13/21 08:00 Pulse Ox 98 06/13/21 08:00 Assessment Bipolar disorder, type I, current episode depressed Autism spectrum disorder Plan: -Patient continues to meet criteria for inpatient psychiatric admission for symptom stabilization and safety. -Patient deferred mental health court. -Medications: We will continue 1000 mg at bedtime for mood stabilization. We will continue the patient's Abilify 20 mg by mouth daily for mood stabilization/augmentation The patient last received Abilify maintena 400 mg IM on 05/27/21. His next dose is due 06/24/21. -When necessary Ativan and Haldol for agitation/aggression. -NRT - nicotine patch -SW on board for discharge planning. Encouraged the patient to participate in milieu.
[2021-06-16] MEDS: DIVALPROEX 500 MG TABLET.DR PO SCH (20:17)
[2021-06-16] MEDS: LORazepam 1 MG TAB PO PRN (23:35)
[2021-06-17 07:12] VITALS: BP 126/56; TEMP 97
[2021-06-17] MEDS: NICOTINE 14MG/24HR PATCH TRANSDERM SCH (08:39)
--- NOTE | 2021-06-17 11:13 | P.DS ---
Providers Date of admission: 06/13/21 07:57 Expected date of discharge: 06/17/21 Attending physician: Everardo Stern MD Consults: 06/13/21 09:26 Consult Physician Routine Consulting Provider: Dino Cross Consult Reason/Comments: history and physical Do you want consulting provider notified?: Already Contacted Primary care physician: Edin Fritz - Discharge Diagnosis(es) (1) Bipolar disorder with current episode depressed Current Visit: Yes Status: Acute Priority: High (2) Autism spectrum disorder Current Visit: Yes Status: Acute Priority: Medium (3) Nicotine dependence Current Visit: Yes Status: Acute Priority: Low Hospital Course: Admission HPI: Admission note was completed by Dr. Stern "Patient is a single, unemployed, 30-year-old male who was transferred from [facility] to [facility] on 06/13/2021 via EMS for depression and suicidal ideation with plan. Patient presented to the hospital on 06/13/2021, brought in by EMS from [facility] after endorsing significant depression and suicidal ideation with a plan. As per petition written by Salvatore Fitzgerald who is a mental health worker at [facility], [place] stated that he intends to commit suicide. Dehydration. He reported that he would do this if he was to be released and that he found a secluded witted local area where he would do this. The patient was also certified by the emergency physician at [facility]. Upon evaluation by EPS, the patient reported that "he had a plan to end his life at the [facility], right under their noses." The patient stated that he attempted to go to the [facility] hydrate himself. Currently, the patient is not participating in the psychiatric evaluation. He refuses to get out of bed and answer any questions. The patient did endorse that he has suicidal thoughts about dehydrating himself to this provider but denied any other plans at this time. The patient reportedly has no job, no girlfriend, no family, no support. The patient was last admitted to the psychiatric unit from 03/21/2021- 03/29/2021. The patient was discharged on a regimen of Zyprexa 5 mg 3 times a day for psychosis. He was discharged with [facility]. The patient has since had medication changes and his home medication regimen includes Abilify 15 mg daily and Depakote 1500 mg at bedtime. It is uncertain at this time whether the patient has been adherent with his medications or not. The patient had a second medical certificate filled out due to concerns for immediate risk of harm to self and an inability to participate in treatment." Hospital course: Upon admission to the unit patient was initially admitted involuntarily and ended up signing a deferral with his dairy science teacher on 06/13 and agreeable to continue on with treatment. Patient got along well with other patients on the unit and followed unit protocol. Patient was compliant with the medications and denied any side effects throughout hospital course. Patient was started on Abilify by mouth 20 mg daily for mood stabilization/augmentation. Patient had received Abilify Maintenna 400 mg IM on 05/27/21 and will be due for his next dose on 06/24/21. Patient was also restarted back on Depakote and titrated to a dose of 1000 mg daily at bedtime for mood stabilization. Patient spoke of his stressors and engaged in therapy both group and individual. Patient was also seen by medical team for history and physical exam. Throughout the course of the hospitalization patient gradually improved with regards to mood lability, anxiety, sleep and return back to his baseline level of functioning. On the day of discharge patient denied any suicidal or homicidal ideations intent or plan denied any auditory or visual hallucinations. Patient endorsed wanting to live for his health and future. The patient denied any access to guns or weapons. Patient denied any paranoia and did not endorse any delusions. Patient does not have a significant history of substance abuse however was counseled on abstaining from all substances including alcohol and marijuana. Patient was also counseled on the medications and need for regular compliance and was encouraged to follow-up with their outpatient appointment for mental health and also for primary care. Social work to arrange for patient's discharge today to alf with [facility] follow-up. Mental status exam: General Appearance: Patient appears to be tall, stated age is alert, pleasant, and cooperative. Patient is in no acute distress and has improved hygiene and grooming Behavior: Patient is calmly seated without any agitated behavior. Speech: Patient's speech is fluent and nonpressured. Mood/Affect: Patient reports their mood is "good", affect is congruent Suicidality/Homicidality: Patient denies having any suicidal or homicidal ideation intent or plan. Perceptions: Patient denies any auditory or visual hallucinations. Though content/process: There is no evidence of any delusional thought content and thought process is linear and goal-directed. more future oriented Memory and concentration: AOX3, grossly intact for the purposes of this session. Can spell "WORLD" backwards correctly. Judgment and insight: improved with guarded prognosis Impression: Bipolar disorder, current episode depressed Autism spectrum disorder Nicotine dependence Plan: -Continue with discharge today as patient has improved and stabilized psychiatrically and is not currently an imminent threat to himself and/or others. -Continue medications: Abilify by mouth for 7 more days for mood stabilization/augmentation. Patient apparently has received Abilify Maintenna 4 00 mg IM on 05/27/21 and will be due for his next dose on 06/24/21. Continue with 1000 mg of Depakote daily at bedtime for mood stabilization. -Patient was counseled on the need for medication compliance and appropriate follow-up at mental health and also primary care for medical issues. Patient verbalized understanding and agreed. -Social work to help arrange patient's transportation to alf today in [place] with [facility] follow-up. Social work also to arrange for patients follow up appointments with [facility] for psychiatric care along with follow up with primary care provider. -Patient counseled on abstaining from recreational drugs and marijuana and alcohol. Was informed/educated on the adverse effects on their physical and mental health. Patient verbally agreed and understood. -Patient was instructed to return to the hospital or seek immediate medical care if their psychiatric or medical symptoms do worsen or reoccur. Allergies Allergy/AdvReac Type Severity Reaction Status Date / Time lamotrigine [From Lamictal] Allergy Anaphylaxis Verified 03/26/21 10:37 Vital Signs Temp 97.0 F L 06/17/21 07:11 Pulse 78 06/17/21 07:11 Resp 18 06/13/21 08:00 BP 126/56 06/17/21 07:11 Pulse Ox 98 06/13/21 08:00 Patient Condition at Discharge: Stable Plan - Discharge Summary New Discharge Prescriptions: New ARIPiprazole [Abilify] 20 mg PO DAILY@1200 7 Days tab ARIPiprazole IM [Abilify Maintena] 400 mg IM ONCE #1 Divalproex [Depakote] 1,000 mg PO HS 30 Days tablet Nicotine 14Mg/24Hr Patch [Habitrol] 1 patch TRANSDERM DAILY 14 Days patch Discontinued Nicotine 14Mg/24Hr Patch [Habitrol] 1 patch TRANSDERM DAILY 30 Days patch OLANZapine [ZyPREXA] 5 mg PO TID 30 Days tab Discharge Medication List ARIPiprazole IM [Abilify Maintena] 400 mg IM ONCE #1 06/17/21 [Rx] ARIPiprazole [Abilify] 20 mg PO DAILY@1200 7 Days tab 06/17/21 [Rx] Divalproex [Depakote] 1,000 mg PO HS 30 Days tablet 06/17/21 [Rx] Nicotine 14Mg/24Hr Patch [Habitrol] 1 patch TRANSDERM DAILY 14 Days patch 06/17/21 [Rx] Follow up Appointment(s)/Referral(s): [facility] [Outside] - 06/20/21 10:15 am (06/20/2021 at 3:[address] Martinez 06/20/2021 at 10:15 with Omer for therapy ) Activity/Diet/Wound Care/Special Instructions: Activity and diet as tolerated. Avoid the use of street drugs and alcohol. Take all medications as prescribed. When you are in need of refills on your medications please contact your medical provider and/or outpatient psychiatrist to have this done. Please go to scheduled outpatient appointment for aftercare treatment. If symptoms return or become worse, call the crisis line at and/or go to the nearest emergency room for evaluation. Discharge Disposition: OTHER INSTITUTION NOT DEFINED
[2021-06-24] MEDS ORDERED: ARIPiprazole IM 400 MG VIAL (NO COST) PHARMACY STOCK IM ONE (08:00)
== END 2021-06-17 13:07 | disposition home or self-care (01) | DRG 885 ==
LOC: 3MHU 07:57
PROVIDERS: ADMIT Psychiatry & Neurology Psychiatry; ATTEND Psychiatry & Neurology Psychiatry
DX: F31.30 Bipolar disorder, current episode depressed, mild or moderate severity, unspecified (principal); R45.851 Suicidal ideations; F84.0 Autistic disorder; Z72.811 Adult antisocial behavior; F41.9 Anxiety disorder, unspecified; F17.210 Nicotine dependence, cigarettes, uncomplicated; Z79.899 Other long term (current) drug therapy; Z91.5 Personal history of self-harm; Z59.0 Homelessness; Z56.0 Unemployment, unspecified; Z88.8 Allergy status to other drugs, medicaments and biological substances

== ENCOUNTER 2021-06-26 13:01 | Inpatient (IN) | payer MEDICARE, MEDICAID ==
[2021-06-26 14:54] LABS: Amphetamine Screen,Urine Not Detected (NotDetected); Barbiturate Screen,Urine Not Detected (NotDetected); Benzodiazepines Screen,Urine Not Detected (NotDetected); Cocaine Screen,Urine Not Detected (NotDetected); Methadone Screen, Urine Not Detected (NotDetected); Opiate Screen,Urine Not Detected (NotDetected); Oxycodone Screen, Urine Not Detected (NotDetected); Phencyclidine Screen,Urine Not Detected (NotDetected); Tricyclic Antidepressant,Urine Not Detected (NotDetected); Urn Cannabinoid Scrn Detected (NotDetected)
--- NOTE | 2021-06-26 16:06 | ED ---
Psych HPI - General Chief Complaint: Psychiatric Symptoms Stated Complaint: EPS eval Time Seen by Provider: 06/26/21 13:42 Source: patient Mode of arrival: ambulatory - History of Present Illness Initial Comments: Patient complains of depression. He has suicidal thoughts. He has not tried to harm himself today. He has no injuries. He has no chest or belly or back pain. - Related Data Previous Rx's Medication Instructions Recorded ARIPiprazole IM [Abilify Maintena] 400 mg IM ONCE #1 06/17/21 ARIPiprazole [Abilify] 20 mg PO DAILY@1200 7 Days tab 06/17/21 Divalproex [Depakote] 1,000 mg PO HS 30 Days tablet 06/17/21 Nicotine 14Mg/24Hr Patch [Habitrol] 1 patch TRANSDERM DAILY 14 Days 06/17/21 patch Allergies Allergy/AdvReac Type Severity Reaction Status Date / Time lamotrigine [From Lamictal] Allergy Anaphylaxis Verified 06/26/21 13:41 Review of Systems ROS Statement: Those systems with pertinent positive or pertinent negative responses have been documented in the HPI. ROS Other: All systems not noted in ROS Statement are negative. Past Medical History Past Medical History: No Reported History History of Any Multi-Drug Resistant Organisms: None Reported Past Surgical History: No Surgical Hx Reported Past Psychological History: Anxiety, Depression Smoking Status: Current every day smoker Past Alcohol Use History: None Reported Past Drug Use History: Marijuana - Past Family History Family Family Medical History: No Reported History General Exam Limitations: no limitations General appearance: alert, in no apparent distress Head exam: Present: atraumatic, normocephalic, normal inspection Eye exam: Present: normal appearance, PERRL, EOMI. Absent: scleral icterus, conjunctival injection, periorbital swelling ENT exam: Present: normal exam, mucous membranes moist Neck exam: Present: normal inspection. Absent: tenderness, meningismus, lymphadenopathy Respiratory exam: Present: normal lung sounds bilaterally. Absent: respiratory distress, wheezes, rales, rhonchi, stridor Cardiovascular Exam: Present: regular rate, normal rhythm, normal heart sounds. Absent: systolic murmur, diastolic murmur, rubs, gallop, clicks GI/Abdominal exam: Present: soft, normal bowel sounds. Absent: distended, tenderness, guarding, rebound, rigid Extremities exam: Present: normal inspection, full ROM, normal capillary refill. Absent: tenderness, pedal edema, joint swelling, calf tenderness Back exam: Present: normal inspection Neurological exam: Present: alert, oriented X3, CN II-XII intact Psychiatric exam: Present: normal affect, normal mood Skin exam: Present: warm, dry, intact, normal color. Absent: rash Course Vital Signs 06/26/21 13:38 Temperature 97.9 F Pulse Rate 91 Respiratory 17 Rate Blood Pressure 116/72 O2 Sat by Pulse 96 Oximetry Medical Decision Making - Medical Decision Making Patient tells me he has suicidal thoughts. He is seen by the child welfare social worker. He will be admitted to psychiatry. - Lab Data Lab Results 06/26/21 Range/Units 14:36 Urine Opiates Screen Not Detected (NotDetected) Ur Oxycodone Screen Not Detected (NotDetected) Urine Methadone Screen Not Detected (NotDetected) Ur Propoxyphene Screen Not Detected (NotDetected) Ur Barbiturates Screen Not Detected (NotDetected) U Tricyclic Antidepress Not Detected (NotDetected) Ur Phencyclidine Scrn Not Detected (NotDetected) Ur Amphetamines Screen Not Detected (NotDetected) U Methamphetamines Scrn Not Detected (NotDetected) U Benzodiazepines Scrn Not Detected (NotDetected) Urine Cocaine Screen Not Detected (NotDetected) U Marijuana (THC) Screen Detected H (NotDetected) Disposition Clinical Impression: Depression Disposition: TRANSFER TO PSYCH HOSP/UNIT Condition: Good Is patient prescribed a controlled substance at d/c from ED?: No Referrals: Edin Fritz MD [Primary Care Provider] - 1-2 days
[2021-06-26] MEDS ORDERED: MAGNESIUM HYDROXIDE 2,400 MG/10 ML CUP PO PRN (17:47)
[2021-06-26] MEDS ORDERED: ACETAMINOPHEN TAB 325 MG TAB PO PRN (17:47)
[2021-06-26] MEDS ORDERED: MAG HYDROX/AL HYDROX/SIMETH 30 ML CUP PO PRN (17:47)
[2021-06-26] MEDS ORDERED: LORazepam 2 MG/ML INJ IM PRN (17:52)
[2021-06-26] MEDS ORDERED: HALOPERIDOL LACTATE 5 MG/ML 1 ML VIAL IM PRN (17:53)
[2021-06-27] MEDS: LORazepam 1 MG TAB PO PRN ×2 (00:38→22:26)
[2021-06-27] MEDS: NICOTINE 14MG/24HR PATCH TRANSDERM SCH (08:20)
[2021-06-27 10:22] LABS: Basophils # (A) 0.1 k/uL (0-0.2); Basophils % (A) 1 %; Eosinophils # (A) 0.2 k/uL (0-0.7); Eosinophils % (A) 5 %; HCT 48.3 % (39.0-53.0); Lymphocytes # (A) 1.5 k/uL (1.0-4.8); Lymphocytes % (A) 37 %; MCH 32.3 pg (25.0-35.0); MCHC 33.1 g/dL (31.0-37.0); MCV 97.4 fL (80.0-100.0); Mean Platelet Volume 8.1; Monocytes # (A) 0.4 k/uL (0-1.0); Monocytes % (A) 9 %; Neutrophils # (A) 1.9 k/uL (1.3-7.7); Neutrophils % (A) 46 %; Platelet Count 144 k/uL (150-450); RBC 4.96 m/uL (4.30-5.90); RDW 13.1 % (11.5-15.5)
[2021-06-27 10:42] LABS: ALT 41 U/L (4-49); AST 33 U/L (17-59); African American GFR (CKD) >90 (>60 ml/min/1.73 sqM); Albumin 3.6 g/dL (3.5-5.0); Alkaline Phosphatase 49 U/L (38-126); Anion Gap 5 mmol/L; Blood Urea Nitrogen 14 mg/dL (9-20); Calcium 9.6 mg/dL (8.4-10.2); Carbon Dioxide 30 mmol/L (22-30); Chloride 104 mmol/L (98-107); Glucose 80 mg/dL (74-99); Non-African American GFR(CKD) >90 (>60 ml/min/1.73 sqM); Potassium 4.3 mmol/L (3.5-5.1); Sodium 139 mmol/L (137-145); Total Bilirubin 0.8 mg/dL (0.2-1.3); Total Protein 6.4 g/dL (6.3-8.2)
--- NOTE | 2021-06-27 11:32 | P.HP ---
Psychiatric H&P - . H&P Date: 06/27/21 History & Physical: Allergies Allergy/AdvReac Type Severity Reaction Status Date / Time lamotrigine [From Lamictal] Allergy Anaphylaxis Verified 06/26/21 13:41 Vital Signs Temp 97.4 F L 06/27/21 06:58 Pulse 78 06/27/21 06:58 Resp 16 06/27/21 06:58 BP 115/82 06/27/21 06:58 Pulse Ox 98 06/26/21 17:45 Intake & Output 06/26/21 06/27/21 06/27/21 18:59 06:59 18:59 Weight 107.501 kg Laboratory Last Values WBC 4.0 k/uL (3.8-10.6) 06/27/21 09:39 RBC 4.96 m/uL (4.30-5.90) 06/27/21 09:39 Hgb 16.0 gm/dL (13.0-17.5) 06/27/21 09:39 Hct 48.3 % (39.0-53.0) 06/27/21 09:39 MCV 97.4 fL (80.0-100.0) 06/27/21 09:39 MCH 32.3 pg (25.0-35.0) 06/27/21 09:39 MCHC 33.1 g/dL (31.0-37.0) 06/27/21 09:39 RDW 13.1 % (11.5-15.5) 06/27/21 09:39 Plt Count 144 k/uL (150-450) L 06/27/21 09:39 MPV 8.1 06/27/21 09:39 Neutrophils % 46 % 06/27/21 09:39 Lymphocytes % 37 % 06/27/21 09:39 Monocytes % 9 % 06/27/21 09:39 Eosinophils % 5 % 06/27/21 09:39 Basophils % 1 % 06/27/21 09:39 Neutrophils # 1.9 k/uL (1.3-7.7) 06/27/21 09:39 Lymphocytes # 1.5 k/uL (1.0-4.8) 06/27/21 09:39 Monocytes # 0.4 k/uL (0-1.0) 06/27/21 09:39 Eosinophils # 0.2 k/uL (0-0.7) 06/27/21 09:39 Basophils # 0.1 k/uL (0-0.2) 06/27/21 09:39 Sodium 139 mmol/L (137-145) 06/27/21 09:39 Potassium 4.3 mmol/L (3.5-5.1) 06/27/21 09:39 Chloride 104 mmol/L (98-107) 06/27/21 09:39 Carbon Dioxide 30 mmol/L (22-30) 06/27/21 09:39 Anion Gap 5 mmol/L 06/27/21 09:39 BUN 14 mg/dL (9-20) 06/27/21 09:39 Creatinine 0.75 mg/dL (0.66-1.25) 06/27/21 09:39 Est GFR (CKD-EPI)AfAm >90 (>60 ml/min/1.73 sqM) 06/27/21 09:39 Est GFR (CKD-EPI)NonAf >90 (>60 ml/min/1.73 sqM) 06/27/21 09:39 Glucose 80 mg/dL (74-99) 06/27/21 09:39 Calcium 9.6 mg/dL (8.4-10.2) 06/27/21 09:39 Total Bilirubin 0.8 mg/dL (0.2-1.3) 06/27/21 09:39 AST 33 U/L (17-59) 06/27/21 09:39 ALT 41 U/L (4-49) 06/27/21 09:39 Alkaline Phosphatase 49 U/L (38-126) 06/27/21 09:39 Total Protein 6.4 g/dL (6.3-8.2) 06/27/21 09:39 Albumin 3.6 g/dL (3.5-5.0) 06/27/21 09:39 TSH 1.180 mIU/L (0.465-4.680) 06/27/21 09:39 Urine Opiates Screen Not Detected (NotDetected) 06/26/21 14:36 Ur Oxycodone Screen Not Detected (NotDetected) 06/26/21 14:36 Urine Methadone Screen Not Detected (NotDetected) 06/26/21 14:36 Ur Propoxyphene Screen Not Detected (NotDetected) 06/26/21 14:36 Ur Barbiturates Screen Not Detected (NotDetected) 06/26/21 14:36 U Tricyclic Antidepress Not Detected (NotDetected) 06/26/21 14:36 Ur Phencyclidine Scrn Not Detected (NotDetected) 06/26/21 14:36 Ur Amphetamines Screen Not Detected (NotDetected) 06/26/21 14:36 U Methamphetamines Scrn Not Detected (NotDetected) 06/26/21 14:36 U Benzodiazepines Scrn Not Detected (NotDetected) 06/26/21 14:36 Urine Cocaine Screen Not Detected (NotDetected) 06/26/21 14:36 U Marijuana (THC) Screen Detected (NotDetected) H 06/26/21 14:36 Coronavirus (PCR) Not Detected (Not Detectd) 06/26/21 16:24 06/27/21 11:31 IDENTIFYING DATA: Patient is a single, unemployed, homeless, 30-year-old male who was recently admitted onto this unit from 06/13/2021 - 06/26/2021, admitted voluntary for depression and paranoia. HPI: Patient presented to the hospital on 06/26/2021, brought in by self after being kicked out of the longterm he was living in [place]. He has since relocated to the [place] area. As per EPS note, the patient presented with delusions and paranoia ruminating about pedophiles, prostitutes, demons, and God,. He also reported to the EPS nurse at his mother's serial killer and his father was also pedophile. He does state to this provider that the longterm in [place] housed a lot of pedophiles and that they preached acceptance of them which did not sit well with him and that is part of the reason why he left the longterm. The patient also admitted to the EPS nurse that he has "dark thoughts about woman and admits that his misogynistic." He did report that his sister no longer supports him and that he has been increasingly suicidal. Upon evaluation on the unit, the patient does admit that he feels like he is feeling "manic." He states that he feels like his speech is rapid and that his thoughts are constantly racing. He does admit to some mood lability and irritability. He also reports that he has been feeling increasingly paranoid, in particular believes that the previous longterm he was staying and was run by a pedophile and preached acceptance of pedophiles. The patient states that he has been off his medications for the last 2 days and admits that he missed his last dose of Abilify maintena. In regards other mood symptoms, the patient is not endorsing any current suicidal or homicidal ideation, intention, and/or plan. He is not reporting any auditory or visual hallucinations. The patient denies any issues regarding his appetite but does state that sleep is disjointed with multiple nighttime awakenings. The patient was last discharged from [facility] on 06/17/2021, and was placed on Abilify maintena and depakote. He admits to non adherence but states that the medications were beneficial and that he was able to tolerate them well. PAST PSYCHIATRIC HISTORY: The patient was admitted onto the psychiatric unit from 03/21/2021- 03/29/2021 with a diagnosis of major depressive disorder with psychotic features. He was also again admitted from 06/13/2021 to 06/26/2021. He is currently open with [facility]. He has been previously discharge on a regimen of Abilify and Depakote. PAST MEDICAL HISTORY: Past Medical History: No Reported History History of Any Multi-Drug Resistant Organisms: None Reported Past Surgical History: No Surgical Hx Reported Past Psychological History: Anxiety, Depression Smoking Status: Current every day smoker Past Alcohol Use History: None Reported Past Drug Use History: Marijuana ALLERGIES: Lamotrigine CHEMICAL DEPENDENCY HISTORY: Patient admits to marijuana. Denies other drug or alcohol use. FAMILY PSYCHIATRIC/SUBSTANCE USE HISTORY: Patient denies. SOCIAL HISTORY: Patient is a single, unemployed, 30-year-old male. He is currently homeless. 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 He reports that he was very bright and that he did not have to study much and wo uld've succeeded at her wasn't for his mental illness. MENTAL STATUS EXAM: General Appearance: Patient appears to be stated age is alert, directable and cooperative. Patient appears to have fair hygiene and grooming. Behavior: Patient is seated without any agitated behavior. Psychomotor activity is normal. Eye contact is appropriate. Speech: Patient's speech is spontaneous, rapid in rate, but interruptible. Mood/Affect: Patient reports their mood is "a little manic." Affect is expansive. Suicidality/Homicidality: Patient is currently denying any suicidal or homicidal ideation. Perceptions: Patient denies any auditory or visual hallucinations. Though content/process: Some paranoid bizarre thought content is endorsed. Thought process appears to be reclusive associations and flight of ideas. Memory and concentration: AOX3, grossly intact for the purposes of this session. Can spell "WORLD" backwards Judgment and insight: Poor STRENGTHS/WEAKNESSES: Strength is that the patient is in relatively good physical health. Weakness is that the patient is homeless and has poor social support. He also has prior attempts at suicide. INTELLECT: average IMPRESSIONS: Bipolar disorder, type II, current episode, mixed PLAN: -Patient is admitted under involuntary status to [facility] for stabilization of psychiatric symptoms and safety. A second certification was completed and along with petition will be filed for court. -Medications : Will start patient on Abilify maintena 400 mg IM to be administered today. Depakote 1500 mg by mouth at bedtime for mood stabilization -Ativan and Haldol PRN for agitation/aggression -Patient was informed of the risks, benefits and side effects of the medication but refused to acknowledge information provided to him. -Internal medicine to perform history and physical examination. -NRT - nicotine patch -SW on board for discharge planning. Encourage patient to participate in groups to work on coping skills. 06/27/21 11:31
[2021-06-27] MEDS: ARIPiprazole IM SYRINGE 400 MG (NO CHARGE) PHARMACY STOCK IM ONE ×2 (13:21→13:27)
[2021-06-27 17:05] LABS: Hemoglobin A1C 4.9 % (4.0-6.0)
--- NOTE | 2021-06-27 18:18 | P.HPIM ---
History of Present Illness H&P Date: 06/27/21 Chief Complaint: Having bizarre thoughts History of presenting complaint: This is a 30-year-old patient who follows with Dr. Fritz. Patient was asked to leave a fci that he was living in [place]. He moved to [place] on. Patient was having delusions and talks about pedophiles process uses demons and cord. He also told the EPS noticed that his mother was acetyl nuclear and his father was a pedophiles. He is very appropriate answering questions. Somewhat in a hyper state. He does smoke cigarettes. Denies use of recreational drugs. He was discharged from [facility] [place] on June 17. Review of systems: GEN.: None EYES: None HEENT: None NECK: None RESPIRATORY: None CARDIOVASCULAR: None GASTROINTESTINAL: None GENITOURINARY: None MUSCULOSKELETAL: None LYMPHATICS: None HEMATOLOGICAL: None PSYCHIATRY: As above NEUROLOGICAL: None Past medical history to include: Bipolar disorder Social history: Unemployed. homeless. Does smoke a pack a day. Denies alcohol or use of recreational drugs Family history: Reviewed, noncontributory to presentation Physical examination: VITAL SIGNS: 87, 78, 18, 1 26 x 56, 96% room air GENERAL: BMI 0.4, sitting up in a chair, anxious EYES: Pupils equal. Conjunctiva normal. HEENT: External appearance of nose and ears normal, oral cavity grossly normal. NECK: JVD not raised; masses not palpable. HEART: First and second heart sounds are normal; no edema. LUNGS: Respiratory rate normal; clear to auscultation. ABDOMEN: Soft, nontender, liver spleen not palpable, no masses palpable. PSYCH: Answering questions, anxious NEUROLOGICAL: Cranial nerves grossly intact; no facial asymmetry, power and sensation grossly intact. LYMPHATICS: No lymph nodes palpable in the axilla and neck Investigations: WBC 4 hemoglobin 16 platelets 144 potassium 4.3 creatinine 0.75 Urine drug screen positive for marijuana Coronavirus [PCR]: Not detected Assessment and plan: -Major depressive disorder, recurrent, severe -Chronic nicotine dependence cigarette smoker Nicotine patch -Some element of antisocial behavior. Care was discussed with the patient. Follow with antidepression/antipsychotics as per psychiatry. Patient to follow-up with PCP. Case management consultation. Thank you Dr. Nash Past Medical History Past Medical History: No Reported History History of Any Multi-Drug Resistant Organisms: None Reported Past Surgical History: No Surgical Hx Reported Past Psychological History: Anxiety, Depression Smoking Status: Current every day smoker Past Alcohol Use History: None Reported Past Drug Use History: Marijuana - Past Family History Family Family Medical History: No Reported History Medications and Allergies Home Medications Medication Instructions Recorded Confirmed Type ARIPiprazole IM [Abilify Maintena] 400 mg IM ONCE #1 06/17/21 Rx ARIPiprazole [Abilify] 20 mg PO DAILY@1200 7 Days tab 06/17/21 Rx Divalproex [Depakote] 1,000 mg PO HS 30 Days tablet 06/17/21 Rx Nicotine 14Mg/24Hr Patch [Habitrol] 1 patch TRANSDERM DAILY 14 Days 06/17/21 Rx patch Allergies Allergy/AdvReac Type Severity Reaction Status Date / Time lamotrigine [From Lamictal] Allergy Anaphylaxis Verified 06/26/21 13:41 Physical Exam Vitals: Vital Signs Temp Pulse Pulse Resp BP BP Pulse Ox 06/27/21 06:58 97.4 F L 78 16 115/82 06/26/21 17:45 97.7 F 73 16 120/85 98 06/26/21 13:38 97.9 F 91 17 116/72 96 Results CBC & Chem 7: 06/27/21 09:39 06/27/21 09:39 Labs: Abnormal Lab Results - Last 24 Hours (Table) 06/26/21 Range/Units 14:36 U Marijuana (THC) Screen Detected H (NotDetected)
[2021-06-27 18:59] LABS: Chol/HDL Ratio 4.56; Cholesterol 178 mg/dL (0-200); LDL Cholesterol,Calculated 116.8 mg/dL (0.0-131.0)
[2021-06-27] MEDS: DIVALPROEX ER 500 MG TAB.ER.24H PO SCH (19:53)
[2021-06-28 06:40] VITALS: BP 105/56; PULSE 54; RESP 14; TEMP 97.6
[2021-06-28] MEDS: NICOTINE 14MG/24HR PATCH TRANSDERM SCH (08:27)
--- NOTE | 2021-06-28 11:06 | P.PN ---
Progress Note - Text Progress Note Date: 06/28/21 Interval History: Patient was seen resting in bed and was directable and agreeable to speak with public relations writer in his room. He reports that he is feeling better. He is currently denying any suicidal or homicidal ideation, intention, and/or plan. The patient remains future oriented statements that he is looking into working for [employer] in [place] as they are offering $21/hour. He does wish to be discharged to an [facility] home however was informed that this is not possible due to lack of [facility] beds available. He is currently not endorsing any significant manic symptoms and has been sleeping well. He has been adherent with his medications and is endorsing mild sedation as a side effect. He is otherwise not reporting any auditory or visual hallucinations. He denies any paranoia or other delusions. Mental Status Exam: General Appearance: Patient appears to be stated age is alert, directable, and cooperative. Fair hygiene and grooming.. Behavior: Patient is calmly seated without any agitated behavior. Speech: Patient's speech is fluent and nonpressured. Mood/Affect: Mood is "pretty good," affect is congruent with appropriate range. Suicidality/Homicidality: Patient denies having any suicidal or homicidal ideation, intention, and/or plan. Perceptions: Patient denies any visual hallucinations and denies any auditory hallucinations Though content/process: There is no evidence of any delusional thought content and thought process is linear and goal-directed. Memory and concentration: AOX3, grossly intact for the purposes of this session Judgment and insight: Improving mildly Vital Signs Temp 97.6 F 06/28/21 06:39 Pulse 54 L 06/28/21 06:39 Resp 14 06/28/21 06:39 BP 105/56 06/28/21 06:39 Pulse Ox 98 06/26/21 17:45 Laboratory Results - Last 24 Hours 06/27/21 06/27/21 09:39 09:[address] Glu mg/dL 94 Hemoglobin A1c 4.9 Triglycerides 111.0 Cholesterol 178 LDL Cholesterol, Calc 116.8 VLDL Cholesterol, Calc 22.20 HDL Cholesterol 39.0 L Cholesterol/HDL Ratio 4.56 Assessment Bipolar disorder, type II, current episode, mixed Autism Spectrum Disorder Plan: -Patient continues to meet criteria for inpatient psychiatric admission for symptom stabilization and safety. Patient has signed adult voluntary form and medication consent and was placed in patient's chart. -Medications: Abilify maintena 400 mg IM was administered yesterday. Oral abilify was discontinued. Depakote 1500 mg at bedtime for mood stabilization. Will draw depakote level. -When necessary Ativan and Haldol for agitation/aggression. -NRT - nicotine patch -SW on board for discharge planning. Encouraged the patient to participate in milieu.
[2021-06-28] MEDS: DIVALPROEX ER 500 MG TAB.ER.24H PO SCH (22:30)
[2021-06-28] MEDS: LORazepam 1 MG TAB PO PRN (22:31)
[2021-06-29] MEDS: NICOTINE 14MG/24HR PATCH TRANSDERM SCH (09:32)
--- NOTE | 2021-06-29 11:32 | P.DS ---
Providers Date of admission: 06/26/21 17:42 Expected date of discharge: 06/29/21 Attending physician: Everardo Stern MD Consults: 06/26/21 17:47 Consult Physician Routine Consulting Provider: Dino Cross Consult Reason/Comments: medical management Do you want consulting provider notified?: Yes Primary care physician: Edin Fritz - Discharge Diagnosis(es) (1) Bipolar II disorder, moderate, depressed, with mixed features, in partial remission Current Visit: Yes Status: Acute Priority: Medium (2) Autism spectrum disorder Current Visit: Yes Status: Chronic Priority: Medium (3) Nicotine dependence Current Visit: Yes Status: Chronic Priority: Medium Hospital Course: Admission HPI: Patient is a single, unemployed, homeless, 30-year-old male who was recently admitted onto this unit from 06/13/2021 - 06/26/2021, admitted voluntary for depression and paranoia. HPI: Patient presented to the hospital on 06/26/2021, brought in by self after being kicked out of the prison he was living in [place]. He has since relocated to the [facility]. As per EPS note, the patient presented with delusions and paranoia ruminating about pedophiles, prostitutes, demons, and God,. He also reported to the EPS nurse at his mother's serial killer and his father was also pedophile. He does state to this provider that the prison in [place] housed a lot of pedophiles and that they preached acceptance of them which did not sit well with him and that is part of the reason why he left the prison. The patient also admitted to the EPS nurse that he has "dark thoughts about women and admits that his misogynistic." He did report that his sister no longer supports him and that he has been increasingly suicidal. Upon evaluation on the unit, the patient does admit that he feels like he is feeling "manic." He states that he feels like his speech is rapid and that his thoughts are constantly racing. He does admit to some mood lability and irritability. He also reports that he has been feeling increasingly paranoid, in particular believes that the previous prison he was staying and was run by a pedophile and preached acceptance of pedophiles. The patient states that he has been off his medications for the last 2 days and admits that he missed his last dose of Abilify maintena. In regards other mood symptoms, the patient is not endorsing any current suicidal or homicidal ideation, intention, and/or plan. He is not reporting any auditory or visual hallucinations. The patient denies any issues regarding his appetite but does state that sleep is disjointed with multiple nighttime awakenings. The patient was last discharged from [facility] on 06/17/2021, and was placed on Abilify maintena and depakote. He admits to non adherence but states that the medications were beneficial and that he was able to tolerate them well. The patient was admitted onto the psychiatric unit from 03/21/2021- 03/29/2021 with a diagnosis of major depressive disorder with psychotic features. He was also again admitted from 06/13/2021 to 06/26/2021. He is currently open with [facility]. He has been previously discharge on a regimen of Abilify and Depakote. Hospital course: Upon admission to the unit patient was initially presenting with mildly manic symptoms and paranoia. Patient was however directable and agreeable to commence treatment. Patient got along well with other patients on the unit and followed unit protocol. The patient was also nonadherent with his home medications of Abilify maintena and Depakote. Patient was started on Abilify maintena and depakote. Patient was compliant with the medications and denied any side effects throughout hospital course. Patient spoke of his stressors and engaged in therapy both group and individual. Patient was also seen by medical team for history and physical exam. The patient received 400 mg IM of Abilify maintena on 06/27/2021. Depakote was continued at 1500 mg at bedtime and depakote level was within therapeutic range. Throughout the course of the hospitalization patient gradually improved with regards to his mood stability and became more future oriented. The patient had plans to move to the [facility]. He states that he plans to eventually move into an [facility] home. On the day of discharge, patient not endorsing any suicidal or homicidal ideation, intention, and/or plan. He is not reporting any auditory or visual hallucinations. He is not reporting any paranoia or delusions. The patient has been adherent with his medications and is not endorsing any significant side effects at this time. The patient does not have a significant history of substance abuse however was counseled on abstaining from all substances including alcohol and marijuana. The patient was counseled on his medications and the importance of regular adherence and appropriate follow-up. Prior to discharge, a safety plan will be in place for the patient as he is referred to the prison. Mental status exam: General Appearance: Patient appears to be stated age is alert, pleasant, and cooperative. Patient is in no acute distress and has fair hygiene and grooming Behavior: Patient is calmly seated without any agitated behavior. Normal psychomotor activity. Speech: Patient's speech is fluent and nonpressured. Spontaneous, normal rate, tone, and volume. Mood/Affect: Patient reports their mood is " ready to go", affect is congruent and euthymic. Suicidality/Homicidality: Patient denies having any suicidal or homicidal ideation intent or plan. Perceptions: Patient denies any auditory or visual hallucinations. Though content/process: There is no evidence of any delusional thought content and thought process is linear and goal-directed. Patient is future oriented. Memory and concentration: AOX3, grossly intact for the purposes of this session. Can spell "WORLD" backwards correctly. Judgment and insight: Improved with guarded prognosis Impression: Bipolar disorder, type II, current episode, mixed Autism Spectrum Disorder Nicotine Dependence Plan: -Continue with discharge today as patient has improved and stabilized psychiatrically and is not currently an imminent threat to himself and/or others. Patient will remain at chronically elevated risk due to his lack of stable housing as well as his baseline poor frustration tolerance. -Continue medications: Depakote 1500 mg daily at bedtime for mood stabilization Abilify Maintena 400 mg IM QMonthly last administed on 06/27/2021. -Patient was counseled on the need for medication compliance and appropriate follow-up at mental health and also primary care for medical issues. Patient verbalized understanding and agreed. -Social work to arrange for and conduct family meeting to ensure safety upon discharge and answer any questions/concerns. Social work also to arrange for patients follow up appointments with [facility] for psychiatric care along with follow up with primary care provider. -Patient counseled on abstaining from recreational drugs and marijuana and alcohol. Was informed/educated on the adverse effects on their physical and mental health. Patient verbally agreed and understood. -Patient was instructed to return to the hospital or seek immediate medical care if their psychiatric or medical symptoms do worsen or reoccur. -Psychoeducation and supportive therapy provided to patient. Risks and benefits of pharmacological treatment versus the risks and benefits of nontreatment weig ht and discussed. Informed consent discussion held. Common side effects of psychotropics discussed such as, but not limited to headache, GI disturbance, sexual dysfunction, movement disorders, sedation, and orthostatic hypotension. Life threatening and blackbox warnings of prescribed medications also discussed. Potential risks of operating a vehicle or heavy machinery discussed with patient at length. Advised on importance of compliance and a reliable and responsible manner. Patient advised to review FDA consumer labeling of all medications prior to taking. Patient verbalized understanding of potential risks, and agrees with current treatment plan. Patient advised to medically contact physician/emergency personnel if any acute changes in condition occur. -Patient care to be transferred to [facility]. Patient Condition at Discharge: Stable Plan - Discharge Summary New Discharge Prescriptions: New Nicotine 14Mg/24Hr Patch [Habitrol] 1 patch TRANSDERM DAILY 30 Days patch Divalproex ER [Depakote ER] 1,500 mg PO HS 30 Days tab Changed ARIPiprazole IM [Abilify Maintena] 400 mg IM QMONTHLY #1 each Discontinued ARIPiprazole [Abilify] 20 mg PO DAILY@1200 7 Days tab Divalproex [Depakote] 1,000 mg PO HS 30 Days tablet Nicotine 14Mg/24Hr Patch [Habitrol] 1 patch TRANSDERM DAILY 14 Days patch Discharge Medication List ARIPiprazole IM [Abilify Maintena] 400 mg IM QMONTHLY #1 each 06/29/21 [Rx] Divalproex ER [Depakote ER] 1,500 mg PO HS 30 Days tab 06/29/21 [Rx] Nicotine 14Mg/24Hr Patch [Habitrol] 1 patch TRANSDERM DAILY 30 Days patch 06/29/21 [Rx] Follow up Appointment(s)/Referral(s): [facility] [Outside] - 07/05/21 1:00 pm (Follow-up with [facility] @ [facility] in [place]) Edin Fritz MD [Primary Care Provider] - 1-2 days Activity/Diet/Wound Care/Special Instructions: Activity and diet as tolerated. Avoid the use of street drugs and alcohol. Take all medications as prescribed. When you are in need of refills on your medications please contact your medical provider and/or outpatient psychiatrist to have this done. Please go to scheduled outpatient appointment for aftercare treatment. If symptoms return or become worse, call the crisis line at [phone] and/or go to the nearest emergency room for evaluation. Discharge Disposition: HOME SELF-CARE
== END 2021-06-29 14:00 | disposition home or self-care (01) | DRG 885 ==
LOC: EC 13:01 → 3MHU 17:42
PROVIDERS: ADMIT Psychiatry & Neurology Psychiatry; ATTEND Psychiatry & Neurology Psychiatry
DX: F31.81 Bipolar II disorder (principal); R45.851 Suicidal ideations; F17.210 Nicotine dependence, cigarettes, uncomplicated; F22 Delusional disorders; F41.9 Anxiety disorder, unspecified; F84.0 Autistic disorder; Z59.0 Homelessness; Z72.811 Adult antisocial behavior; Z79.899 Other long term (current) drug therapy; Z20.822 Contact with and (suspected) exposure to COVID-19
CPT/HCPCS: 80053; 80061; 80164; 80306; 82075; 83036; 84443; 85025; 87635; 99285